=== PATIENT | male | born 2005 | race Caucasian/White ===

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

== ENCOUNTER 2024-01-26 17:15 | Emergency (ER) | payer OTHER ==
[2024-01-26 17:55] VITALS: TEMP 98.8
--- NOTE | 2024-01-26 17:59 | ED ---
General Adult HPI - General Chief complaint: Abdominal Pain Stated complaint: Abd/chest/back pain Time Seen by Provider: 01/26/24 17:32 Source: patient, RN notes reviewed Mode of arrival: ambulatory Limitations: no limitations - History of Present Illness Initial comments: 18-year-old male presents to the emergency department for evaluation of abdominal pain, chest pain. He states that symptoms started today. States that the pain in his abdomen is fairly diffuse. He states that he feels that the abdominal pain and chest pain are separate. He denies any difficulty breathing. Denies recent fever, cough, congestion. Denies nausea, vomiting, diarrhea. He has a history of chronic pancreatitis of unknown origin. - Related Data Home Medications Medication Instructions Recorded Confirmed Fluticasone Propionate [Flonase] 1 spray EA NOSTRIL BID 01/15/15 01/26/24 Fexofenadine HCl [Norma Allergy] 180 mg PO DAILY 12/21/20 01/26/24 Midazolam [Nayzilam] 1 spray NASAL DIRECTED PRN 12/21/20 01/26/24 Omeprazole 40 mg PO BID 12/21/20 01/26/24 levOCARNitine [l-Carnitine] 2,000 mg PO BID 12/21/20 01/26/24 Albuterol Sulfate [Ventolin HFA] 1 - 2 puff INHALATION RT-Q6H PRN 01/26/24 01/26/24 Alpha Lipoic Acid 300 mg PO BID 01/26/24 01/26/24 Ascorbic Acid [Vitamin C] 1,000 mg PO BID 01/26/24 01/26/24 Biotin [Biotin Disolve] 10,000 mcg PO DAILY 01/26/24 01/26/24 Cholecalciferol [Vitamin D3 (125 125 mcg PO HS 01/26/24 01/26/24 Mcg = 5000 Iu)] Co Q-10 100mg 1 tab PO BID 01/26/24 01/26/24 Creatine 1000mg 1 tab PO HS 01/26/24 01/26/24 Fish Oil/Dha/Epa [Fish Oil 1,200 2 cap PO BID 01/26/24 01/26/24 mg Fish Oil] Inositol 1000mg 1 tab PO DAILY 01/26/24 01/26/24 Mb12/Folinic Acid 5000mcg Inj 1 dose INJ Q72H 01/26/24 01/26/24 Niacin 100 mg PO DAILY 01/26/24 01/26/24 Pyridoxine HCl (Vitamin B6) 50 mg PO DAILY 01/26/24 01/26/24 [Pyridoxine HCl] Riboflavin (Vitamin B2) [Vitamin 100 mg PO DAILY 01/26/24 01/26/24 B-2] Theanine [l-Theanine] 400 mg PO BID 01/26/24 01/26/24 Thiamine HCl [Vitamin B-1] 250 mg PO DAILY 01/26/24 01/26/24 Vitamin E (Dl,Tocopheryl Acet) 400 unit PO HS 01/26/24 01/26/24 [Vitamin E (400 Iu = 180 mg)] Allergies Allergy/AdvReac Type Severity Reaction Status Date / Time amoxicillin Allergy Rash/Hives Verified 01/26/24 20:50 egg Allergy Unknown Verified 01/26/24 20:50 gluten Allergy Unknown Verified 01/26/24 20:50 aripiprazole [From Abilify] AdvReac Hallucinati Verified 01/26/24 20:50 ons cinnamon AdvReac Unknown Verified 01/26/24 20:50 divalproex sodium AdvReac Hallucinati Verified 01/26/24 20:50 [From Depakote] ons lactose AdvReac Unknown Verified 01/26/24 20:50 methylprednisolone AdvReac Hallucinati Verified 01/26/24 20:50 [From Medrol] ons montelukast [From Singulair] AdvReac Unknown Verified 01/26/24 20:50 risperidone [From Risperdal] AdvReac Hallucinati Verified 01/26/24 20:50 ons Review of Systems ROS Statement: Those systems with pertinent positive or pertinent negative responses have been documented in the HPI. ROS Other: All systems not noted in ROS Statement are negative. Past Medical History Past Medical History: Asthma, Liver Disease, Seizure Disorder Additional Past Medical History / Comment(s): partial paralized vocal cords, PANDAS,Autism chiarri malformation, pancreatitis,seasonal allergies History of Any Multi-Drug Resistant Organisms: None Reported Past Surgical History: Adenoidectomy, Ear Surgery, Tonsillectomy Additional Past Surgical History / Comment(s): pancreatic bypass in 2015 at [facility], chiarri malformation, Past Psychological History: ADD/ADHD Smoking Status: Never smoker Past Alcohol Use History: None Reported Past Drug Use History: None Reported - Past Family History Mother Family Medical History: Asthma Father Family Medical History: No Reported History General Exam Limitations: no limitations General appearance: alert, in no apparent distress Head exam: Present: atraumatic, normocephalic, normal inspection Eye exam: Present: normal appearance, PERRL, EOMI. Absent: scleral icterus, conjunctival injection, periorbital swelling ENT exam: Present: normal exam, mucous membranes moist, TM's normal bilaterally, normal external ear exam Neck exam: Present: normal inspection. Absent: tenderness, meningismus, lymphadenopathy Respiratory exam: Present: normal lung sounds bilaterally. Absent: respiratory distress, wheezes, rales, rhonchi, stridor Cardiovascular Exam: Present: regular rate, normal rhythm, normal heart sounds. Absent: systolic murmur, diastolic murmur, rubs, gallop, clicks GI/Abdominal exam: Present: soft, normal bowel sounds. Absent: distended, tenderness, guarding, rebound, rigid Extremities exam: Present: normal inspection, full ROM, normal capillary refill. Absent: tenderness, pedal edema, joint swelling, calf tenderness Back exam: Present: normal inspection Neurological exam: Present: alert, oriented X3 Psychiatric exam: Present: normal affect, normal mood Skin exam: Present: warm, dry, intact, normal color. Absent: rash Course Vital Signs 01/26/24 01/26/24 17:26 21:34 Temperature 98.8 F Pulse Rate 93 83 Respiratory 18 16 Rate Blood Pressure 124/84 110/66 O2 Sat by Pulse 96 97 Oximetry Medical Decision Making - Medical Decision Making Was pt. sent in by a medical professional or institution (, PA, RANGE MASTER, urgent care, hospital, or assisted...) When possible be specific @ -No Did you speak to anyone other than the patient for history (EMS, parent, family, police, friend...)? What history was obtained from this source @ -No Did you review nursing and triage notes (agree or disagree)? Why? @ -I reviewed and agree with nursing and triage notes Were old charts reviewed (outside hosp., previous admission, EMS record, old EKG, old radiological studies, urgent care reports/EKG's, assisted records)? Report findings @ -No old charts were reviewed Differential Diagnosis (chest pain, altered mental status, abdominal pain women, abdominal pain men, vaginal bleeding, weakness, fever, dyspnea, syncope, headache, dizziness, GI bleed, back pain, seizure, CVA, palpatations, mental health, musculoskeletal)? @ -Not applicable EKG interpreted by me (3pts min.). @ -EKG at 1848 shows sinus rhythm rate 74, AR 155, QRS 98, QT/QTc 348/377 X-rays interpreted by me (1pt min.). @ -None done CT interpreted by me (1pt min.). @ -CT chest for PE shows no evidence of PE U/S interpreted by me (1pt. min.). @ -None done What testing was considered but not performed or refused? (CT, X-rays, U/S, labs)? Why? @ -None What meds were considered but not given or refused? Why? @ -None Did you discuss the management of the patient with other professionals (professionals i.e. , PA, RANGE MASTER, lab, RT, psych nurse, oncology social worker, board writer, teacher, chief merchandising officer, piano case and bench assembler)? Give summary @ -No Was smoking cessation discussed for >3mins.? @ -No Was critical care preformed (if so, how long)? @ -No Were there social determinants of health that impacted care today? How? (Homelessness, low income, unemployed, alcoholism, drug addiction, transportation, low edu. Level, literacy, decrease access to med. care, [facility], rehab)? @ -No Was there de-escalation of care discussed even if they declined (Discuss DNR or withdrawal of care, Hospice)? DNR status @ -No What co-morbidities impacted this encounter? (DM, HTN, Smoking, COPD, CAD, Ca ncer, CVA, ARF, Chemo, Hep., AIDS, mental health diagnosis, sleep apnea, morbid obesity)? @ -None Was patient admitted / discharged? Hospital course, mention meds given and route, prescriptions, significant lab abnormalities, going to OR and other pertinent info. @ -Discharge. Patient presented to the emergency department with mother for evaluation of chest pain, abdominal pain. He has a history of chronic pancreatitis and states that his abdominal pain seems similar to this. Laboratory studies obtained. CBC shows Normal WBC at 9.1, hemoglobin 15.3; D- dimer slightly elevated at 0.87; CMP shows sodium 139, potassium 4.4, negative troponin, lipase 126; UA negative for any evidence of infectious process. COVID, influenza, RSV negative. Discussed slightly elevated ddimer. CTA obtained which is negative for PE. Patient provided 1L of NS, declined pain medication. Patient will be discharged home. Patient stable at time of discharge. Case discussed with Undiagnosed new problem with uncertain prognosis? @ -No Drug Therapy requiring intensive monitoring for toxicity (Heparin, Nitro, Insulin, Cardizem)? @ -No Were any procedures done? @ -No Diagnosis/symptom? @ -Abdominal pain, chest pain Acute, or Chronic, or Acute on Chronic? @ -Acute Uncomplicated (without systemic symptoms) or Complicated (systemic symptoms)? @ -Uncomplicated Side effects of treatment? @ -No Exacerbation, Progression, or Severe Exacerbation? @ -No Poses a threat to life or bodily function? How? (Chest pain, USA, DE, pneumonia, PE, COPD, DKA, ARF, appy, cholecystitis, CVA, Diverticulitis, Homicidal, Suicidal, threat to staff... and all critical care pts) @ -No - Lab Data Result diagrams: 01/26/24 18:09 01/26/24 18:09 Lab Results 01/26/24 01/26/24 01/26/24 Range/Units 18:09 18:09 18:09 WBC 9.1 (4.0-11.0) k/uL RBC 5.21 (4.30-5.90) m/uL Hgb 15.3 (13.0-17.5) gm/dL Hct 46.5 (39.0-53.0) % MCV 89.2 (80.0-100.0) fL MCH 29.4 (25.0-35.0) pg MCHC 32.9 (31.0-37.0) g/dL RDW 12.8 (11.5-15.5) % Plt Count 264 (150-450) k/uL MPV 7.8 Neutrophils % 77 % Lymphocytes % 9 % Monocytes % 10 % Eosinophils % 2 % Basophils % 0 % Neutrophils # 7.0 (1.3-7.7) k/uL Lymphocytes # 0.9 L (1.0-4.8) k/uL Monocytes # 0.9 (0-1.0) k/uL Eosinophils # 0.1 (0-0.7) k/uL Basophils # 0.0 (0-0.2) k/uL PT 10.5 (10.0-12.5) sec INR 1.0 (<1.2) APTT 26.4 (22.0-30.0) sec D-Dimer (<0.60) mg/L FEU Sodium 139 (137-145) mmol/L Potassium 4.4 (3.5-5.1) mmol/L Chloride 106 (98-107) mmol/L Carbon Dioxide 27 (22-30) mmol/L Anion Gap 6 mmol/L BUN 13 (9-20) mg/dL Creatinine 0.80 (0.66-1.25) mg/dL Est GFR (CKD-EPI)AfAm >90 (>60 ml/min/1.73 sqM) Est GFR (CKD-EPI)NonAf >90 (>60 ml/min/1.73 sqM) Glucose 97 (74-99) mg/dL Calcium 8.9 (8.4-10.2) mg/dL Total Bilirubin 0.5 (0.2-1.3) mg/dL AST 21 (17-59) U/L ALT 22 (4-49) U/L Alkaline Phosphatase 83 (38-126) U/L Troponin I (0.000-0.034) ng/mL Total Protein 7.0 (6.3-8.2) g/dL Albumin 4.4 (3.5-5.0) g/dL Amylase 51 (30-110) U/L Lipase 126 (23-300) U/L Urine Color Urine Appearance (Clear) Urine pH (5.0-8.0) Ur Specific [place] (1.001-1.035) Urine Protein (Negative) Urine Glucose (UA) (Negative) Urine Ketones (Negative) Urine Blood (Negative) Urine Nitrite (Negative) Urine Bilirubin (Negative) Urine Urobilinogen (<2.0) mg/dL Ur Leukocyte Esterase (Negative) Influenza Type A (PCR) (Not Detectd) Influenza Type B (PCR) (Not Detectd) RSV (PCR) (Not Detectd) SARS-CoV-2 (PCR) (Not Detectd) 01/26/24 01/26/24 01/26/24 Range/Units 18:09 18:09 18:09 WBC (4.0-11.0) k/uL RBC (4.30-5.90) m/uL Hgb (13.0-17.5) gm/dL Hct (39.0-53.0) % MCV (80.0-100.0) fL MCH (25.0-35.0) pg MCHC (31.0-37.0) g/dL RDW (11.5-15.5) % Plt Count (150-450) k/uL MPV Neutrophils % % Lymphocytes % % Monocytes % % Eosinophils % % Basophils % % Neutrophils # (1.3-7.7) k/uL Lymphocytes # (1.0-4.8) k/uL Monocytes # (0-1.0) k/uL Eosinophils # (0-0.7) k/uL Basophils # (0-0.2) k/uL PT (10.0-12.5) sec INR (<1.2) APTT (22.0-30.0) sec D-Dimer 0.87 H (<0.60) mg/L FEU Sodium (137-145) mmol/L Potassium (3.5-5.1) mmol/L Chloride (98-107) mmol/L Carbon Dioxide (22-30) mmol/L Anion Gap mmol/L BUN (9-20) mg/dL Creatinine (0.66-1.25) mg/dL Est GFR (CKD-EPI)AfAm (>60 ml/min/1.73 sqM) Est GFR (CKD-EPI)NonAf (>60 ml/min/1.73 sqM) Glucose (74-99) mg/dL Calcium (8.4-10.2) mg/dL Total Bilirubin (0.2-1.3) mg/dL AST (17-59) U/L ALT (4-49) U/L Alkaline Phosphatase (38-126) U/L Troponin I <0.012 (0.000-0.034) ng/mL Total Protein (6.3-8.2) g/dL Albumin (3.5-5.0) g/dL Amylase (30-110) U/L Lipase (23-300) U/L Urine Color Urine Appearance (Clear) Urine pH (5.0-8.0) Ur Specific [place] (1.001-1.035) Urine Protein (Negative) Urine Glucose (UA) (Negative) Urine Ketones (Negative) Urine Blood (Negative) Urine Nitrite (Negative) Urine Bilirubin (Negative) Urine Urobilinogen (<2.0) mg/dL Ur Leukocyte Esterase (Negative) Influenza Type A (PCR) Not Detected (Not Detectd) Influenza Type B (PCR) Not Detected (Not Detectd) RSV (PCR) Not Detected (Not Detectd) SARS-CoV-2 (PCR) Not Detected (Not Detectd) 01/26/24 Range/Units 20:01 WBC (4.0-11.0) k/uL RBC (4.30-5.90) m/uL Hgb (13.0-17.5) gm/dL Hct (39.0-53.0) % MCV (80.0-100.0) fL MCH (25.0-35.0) pg MCHC (31.0-37.0) g/dL RDW (11.5-15.5) % Plt Count (150-450) k/uL MPV Neutrophils % % Lymphocytes % % Monocytes % % Eosinophils % % Basophils % % Neutrophils # (1.3-7.7) k/uL Lymphocytes # (1.0-4.8) k/uL Monocytes # (0-1.0) k/uL Eosinophils # (0-0.7) k/uL Basophils # (0-0.2) k/uL PT (10.0-12.5) sec INR (<1.2) APTT (22.0-30.0) sec D-Dimer (<0.60) mg/L FEU Sodium (137-145) mmol/L Potassium (3.5-5.1) mmol/L Chloride (98-107) mmol/L Carbon Dioxide (22-30) mmol/L Anion Gap mmol/L BUN (9-20) mg/dL Creatinine (0.66-1.25) mg/dL Est GFR (CKD-EPI)AfAm (>60 ml/min/1.73 sqM) Est GFR (CKD-EPI)NonAf (>60 ml/min/1.73 sqM) Glucose (74-99) mg/dL Calcium (8.4-10.2) mg/dL Total Bilirubin (0.2-1.3) mg/dL AST (17-59) U/L ALT (4-49) U/L Alkaline Phosphatase (38-126) U/L Troponin I (0.000-0.034) ng/mL Total Protein (6.3-8.2) g/dL Albumin (3.5-5.0) g/dL Amylase (30-110) U/L Lipase (23-300) U/L Urine Color Light Yellow Urine Appearance Clear (Clear) Urine pH 6.0 (5.0-8.0) Ur Specific [place] 1.019 (1.001-1.035) Urine Protein Negative (Negative) Urine Glucose (UA) Negative (Negative) Urine Ketones Negative (Negative) Urine Blood Negative (Negative) Urine Nitrite Negative (Negative) Urine Bilirubin Negative (Negative) Urine Urobilinogen <2.0 (<2.0) mg/dL Ur Leukocyte Esterase Negative (Negative) Influenza Type A (PCR) (Not Detectd) Influenza Type B (PCR) (Not Detectd) RSV (PCR) (Not Detectd) SARS-CoV-2 (PCR) (Not Detectd) Disposition Clinical Impression: Abdominal pain, Chest pain Disposition: HOME SELF-CARE Condition: Stable Instructions (If sedation given, give patient instructions): Abdominal Pain (ED) Additional Instructions: Please follow up with your care team. Ensure you are hydrating well. Return to the emergency department for new or worsening symptoms. Is patient prescribed a controlled substance at d/c from ED?: No Referrals: Dedra Martin NPC [Primary Care Provider] - 1-2 days
[2024-01-26 18:19] LABS: Basophils % (A) 0 %; Eosinophils # (A) 0.1 k/uL (0-0.7); Eosinophils % (A) 2 %; HCT 46.5 % (39.0-53.0); HGB 15.3 gm/dL (13.0-17.5); Lymphocytes # (A) 0.9 k/uL (1.0-4.8); Lymphocytes % (A) 9 %; MCH 29.4 pg (25.0-35.0); MCHC 32.9 g/dL (31.0-37.0); MCV 89.2 fL (80.0-100.0); Mean Platelet Volume 7.8; Monocytes # (A) 0.9 k/uL (0-1.0); Monocytes % (A) 10 %; Neutrophils % (A) 77 %; Platelet Count 264 k/uL (150-450); RBC 5.21 m/uL (4.30-5.90); RDW 12.8 % (11.5-15.5); WBC 9.1 k/uL (4.0-11.0)
--- NOTE | 2024-01-26 18:24 | XR ---
EXAMINATION TYPE: XR chest 2V DATE OF EXAM: 01/26/2024 6:13 PM CLINICAL INDICATION:Male, 18 years old with history of pain; [facility] COMPARISON: 09/13/2020 TECHNIQUE: XR chest 2V. Frontal and lateral views of the chest. FINDINGS: Lines/Tubes/Devices: No indwelling lines are seen. Heart/mediastinum: Heart size is normal. Mediastinum appears normal. Pulmonary vascularity: Not increased, Lungs/Pleura: There is no evidence of pleural effusion, focal consolidation, or pneumothorax. Musculoskeletal: No acute osseous abnormality demonstrated in the limits of the exam. Similar mild a symmetric elevation of the right hemidiaphragm. Other findings: None. IMPRESSION: No acute findings, or significant interval change.
[2024-01-26 18:36] LABS: ALT 22 U/L (4-49); AST 21 U/L (17-59); African American GFR (CKD) >90 (>60 ml/min/1.73 sqM); Albumin 4.4 g/dL (3.5-5.0); Alkaline Phosphatase 83 U/L (38-126); Amylase 51 U/L (30-110); Anion Gap 6 mmol/L; Blood Urea Nitrogen 13 mg/dL (9-20); Calcium 8.9 mg/dL (8.4-10.2); Carbon Dioxide 27 mmol/L (22-30); Chloride 106 mmol/L (98-107); Glucose 97 mg/dL (74-99); Lipase 126 U/L (23-300); Non-African American GFR(CKD) >90 (>60 ml/min/1.73 sqM); Potassium 4.4 mmol/L (3.5-5.1); Sodium 139 mmol/L (137-145); Total Bilirubin 0.5 mg/dL (0.2-1.3)
[2024-01-26] MEDS: SODIUM CHLORIDE 0.9% 1,000 ML IV STA (18:37)
[2024-01-26 18:44] LABS: Partial Thromboplastin Time 26.4 sec (22.0-30.0); Prothrombin Time 10.5 sec (10.0-12.5)
[2024-01-26 20:16] LABS: Appearance,Urine Clear (Clear); Bilirubin,Urine Negative (Negative); Blood,Urine Negative (Negative); Color,Urine Light Yellow; Glucose,Urine (UA) Negative (Negative); Ketones,Urine Negative (Negative); Leukocyte Esterase,Urine Negative (Negative); Nitrite,Urine Negative (Negative); Protein,Urine Negative (Negative); Specific Gravity,Urine 1.019 (1.001-1.035); Urobilinogen,Urine <2.0 mg/dL (<2.0)
--- NOTE | 2024-01-26 21:18 | CT ---
EXAMINATION TYPE: CT chest angio for PE CT DLP: 363 mGycm, Automated exposure control for dose reduction was used. DATE OF EXAM: 01/26/2024 8:28 PM COMPARISON: Same day chest x-ray CLINICAL INDICATION:Male, 18 years old with history of pain, elevated dimer; Chest pain, elevated d-d hannah, fever TECHNIQUE/CONTRAST: CTA scan of the thorax is performed with IV Contrast, patient injected with 100 mL of Isovue 370, MIP images are created and reviewed these are created on a separate workstation.. FINDINGS: There is adequate contrast bolus and timing. There is some limitation by streak artifacts. PULMONARY ARTERIES: There is no evidence for a filling defect within the pulmonary vasculature to sug gest acute pulmonary embolism. Pulmonary trunk is normal in size. Trunk measures 2.5 CM. HEART: Normal heart size. No appreciable coronary arterial calcifications. No pericardial effusion. AORTA: Aorta is normal in course and caliber. Ascending aorta is 2.5 CM, descending is 1.9 CM. LOWER NECK: No significant findings. Visualized thyroid is unremarkable. MEDIASTINUM: No evidence of adenopathy. SOFT TISSUES/LYMPH NODES: Unremarkable soft tissues. No axillary adenopathy. LUNGS/ PLEURA: The lung parenchyma appears unremarkable. No effusion or pneumothorax. AIRWAY: Central airways are patent. MUSCULOSKELETAL: No acute osseous abnormality. UPPER ABDOMEN: No significant findings. IMPRESSION: 1. No evidence of pulmonary embolism. 2. No other acute chest process demonstrated.
[2024-01-26 22:04] VITALS: BP 110/66; PULSE 83; RESP 16
== END 2024-01-26 21:35 | disposition home or self-care (01) ==
LOC: EC 17:15
DX: R10.84 Generalized abdominal pain (principal); R07.9 Chest pain, unspecified; Z88.0 Allergy status to penicillin; Z88.1 Allergy status to other antibiotic agents; Z88.8 Allergy status to other drugs, medicaments and biological substances; Z91.012 Allergy to eggs; Z91.048 Other nonmedicinal substance allergy status; Z91.018 Allergy to other foods; Z91.011 Allergy to milk products
CPT/HCPCS: 36415; 93005; 85379; 80053; 82150; 83690; 84484; 85025; 85610; 85730; 81003; 87636; 71046; 71275; 99284; 96360; Q9967

== ENCOUNTER → 2024-08-11 | Outpatient (CLI) | payer OTHER ==
[2024-08-11 22:50] LABS: Alternaria alternata IgE <0.10 kU/L; Aspergillus fumagatus IgE <0.10 kU/L; Birch IgE <0.10 kU/L; Cladosporian herbarum IgE <0.10 kU/L; Cockroach IgE <0.10 kU/L; Dermato. farinae IgE 1.48 kU/L; Dog Dander IgE 0.37 kU/L; Elm IgE <0.10 kU/L; Maple (Box Elder) IgE 0.12 kU/L; Oak IgE <0.10 kU/L; Ragweed,Common IgE <0.10 kU/L; Red Top (Bentgrass) IgE 9.02 kU/L
== END | disposition home or self-care (01) ==
LOC: LABWHC1 16:30
PROVIDERS: ATTEND Internal Medicine Critical Care Medicine
DX: J45.40 Moderate persistent asthma, uncomplicated (principal)
CPT/HCPCS: 36415; 82785; 85008; 86003

== ENCOUNTER → 2024-08-13 | Outpatient (CLI) | payer OTHER ==
--- NOTE | 2024-08-19 23:08 | P.PCN ---
Date of Procedure: 08/13/24 Operative Findings: Home sleep study testing Date of service is 08/13/2024 Pertinent history This is a 18-year-old male patient with history of chronic allergic moderately persistent bronchial asthma, eosinophilic esophagitis and previous history of obstructive sleep apnea at a young age and the patient has undergone tonsillectomy. The patient presented to my office for further evaluation. The patient was asked to undergo a home sleep study to evaluate the ongoing presence of sleep apnea and decide if treatment is needed. He has soft snoring. No witnessed apneas for now. Pertinent physical findings The patient's body mass index is 29.7. Weight is 207 Technical description The [email or web address] system was used to complete his home sleep study. This is a type III home sleep study evaluation. The total recording duration was 8 hours and 28 minutes. The study started at 11:52 PM and ended at 8:20 AM. There was a total of 8 hours and 16 minutes of flow evaluation 8 hours and 17 minutes of oxygen saturation evaluation Results Respiratory analysis showed a total of 1 obstructive apneas 0 obstructive hypopneas and the resulting AHI was 0.1. Oxygenation analysis No significant oxygen desaturations were noted and the patient was able to maintain his oxygen saturation above 90% throughout the sleep study Cardiac summary Average heart rate was 62 with a minimum heart rate of 45 and a maximum heart rate of 106 Assessment Primary snoring, no evidence of any sleep breathing disorder. The patient's AHI 0.1. No evidence of any obstructive apneas or hypopneas. No significant nocturnal oxygen desaturations Chronic eosinophilic esophagitis Chronic allergic bronchial asthma moderate persistent in nature Plan Optimize asthma. No evidence of any sleep breathing disorder. No need for CPAP therapy. Encourage weight loss. Maintain good sleep hygiene measures. Maintain regular sleep schedule. Patient will be reassured in regards to the results of the home sleep study
== END ==
LOC: 3 N SLEEP 17:01
PROVIDERS: ATTEND Internal Medicine Critical Care Medicine